=== PATIENT | male | born 1990 | race Caucasian/White ===

== ENCOUNTER 2017-04-11 10:06 | Emergency (ER) | payer BC ==
[2017-04-11] MEDS ORDERED: predniSONE TAB* 20 MG PO ONE (10:40)
[2017-04-11] MEDS ORDERED: Azithromycin TAB* 250 MG PO ONE (10:40)
[2017-04-11] MEDS ORDERED: Albuterol/Ipratropium NEB.SOL* Albuterol 2.5 MG/Ipratropium 0.5 MG 3 ML INH ONE ×2 (10:40→11:35)
--- NOTE | 2017-04-11 11:12 | RAD ---
Indication: Cough and wheezing. 2 views of the chest including dual energy PA views are reviewed and compared to previous exam dated August 03, 2015. No mediastinal shift is noted. Heart is of normal size and configuration. Lung haas are clear. No alveolar consolidation is noted. IMPRESSION: No active cardiopulmonary disease is noted.
--- NOTE | 2017-04-11 11:39 | ED ---
Clari Severino Edward, scribed for Elieser Rocha MD on 04/11/17 at 1041 . Shortness of Breath - HPI Summary HPI Summary: 26 y/o male presents to the ED c/o sudden onset SOB that started while taking an exam earlier today. The pt states he has had mild SOB described as "problems with his asthma" for the past 3 weeks. Associated sx: productive cough with yellow phlegm. Pt has not been on abx. Symptoms were alleviated with prednisone and aggravated with exertion. - History of Current Complaint Chief Complaint: EDAsthma Hx Obtained From: Patient Onset/Duration: Sudden Onset, Lasting Weeks, Worse Since - this morning Current Severity: Moderate Dyspnea At: Exertion Aggrevating Factors: Other - Walking Alleviating Factors: Other - prednisone Associated Signs & Symptoms: Cough (Productive) - Allergy/Home Medications Allergies/Adverse Reactions: Allergies Allergy/AdvReac Type Severity Reaction Status Date / Time Penicillins Allergy Hives Verified 04/11/17 11:08 PMH/Surg Hx/FS Hx/Imm Hx Previously Healthy: No Endocrine/Hematology History: Denies: Hx Diabetes, Hx Thyroid Disease Cardiovascular History: Denies: Hx Hypertension Respiratory History: Reports: Hx Asthma Denies: Hx Chronic Obstructive Pulmonary Disease (COPD) GI History: Denies: Hx Ulcer - Surgical History Surgery Procedure, Year, and Place: ear tubes as a child Infectious Disease History: No Infectious Disease History: Denies: Hx Clostridium Difficile, Hx Hepatitis, Hx Human Immunodeficiency Virus (HIV), Hx of Known/Suspected MRSA, Hx Shingles, Hx Tuberculosis, Traveled Outside the [place] in Last 30 Days - Family History Known Family History: Positive: Other - Depression - brother - Social History Occupation: Student Alcohol Use: None Hx Substance Use: No Substance Use Type: Reports: None Hx Tobacco Use: No Smoking Status (MU): Never Smoked Tobacco Review of Systems Constitutional: Negative Eyes: Negative ENT: Negative Cardiovascular: Negative Positive: Shortness Of Breath, Cough Gastrointestinal: Negative Genitourinary: Negative Musculoskeletal: Negative Skin: Negative Neurological: Negative Psychological: Normal All Other Systems Reviewed And Are Negative: Yes Physical Exam Triage Information Reviewed: Yes Vital Signs On Initial Exam: Initial Vitals Temp Pulse Resp BP Pulse Ox 97.4 F 105 18 117/76 94 04/11/17 10:10 04/11/17 10:10 04/11/17 10:10 04/11/17 10:10 04/11/17 10:10 Vital Signs Reviewed: Yes Appearance: Positive: Well-Appearing, No Pain Distress Skin: Positive: Warm, Skin Color Reflects Adequate Perfusion, Dry Head/Face: Positive: Normal Head/Face Inspection Eyes: Positive: EOMI, JORDAN ENT: Positive: Normal ENT inspection Neck: Positive: Supple, Nontender Respiratory/Lung Sounds: Positive: Breath Sounds Present, Wheezes - bilateral Cardiovascular: Positive: RRR Abdomen Description: Positive: Nontender, Soft Bowel Sounds: Positive: Present Diagnostics - Vital Signs Vital Signs Temp Pulse Resp BP Pulse Ox 04/11/17 10:10 97.4 F 105 18 117/76 94 - Laboratory Lab Statement: Any lab studies that have been ordered have been reviewed, and results considered in the medical decision making process. - Radiology CXR Xray Interpretation: No Acute Changes - No active cardiopulmonary disease Radiology Interpretation Completed By: Radiologist - ED PHYSICIAN REVIEWS AND AGREES Re-Evaluation - Re-Evaluation 1 Re-Evaluation Time: 11:15 Comment: Pt is tachycardic. Breathing is improved, still has wheezes bilaterally. Pt states he feels improved. Course/Dx - Course Course Of Treatment: IMPROVED IN ED AFTER DUONEB X 2. NO INFILTRATE ON CXR. RX ZPAC AND PREDNISONE. F/U PMD; RETURN IF WORSE. - Diagnoses Provider Diagnoses: Asthma exacerbation, Bronchitis Discharge - Discharge Plan Condition: Stable Disposition: HOME Prescriptions: Azithromycin TAB* [Zithromax TAB (Z-SANTA) 250 mg #6 tabs] 250 mg PO DAILY #4 tab predniSONE TAB* [Deltasone TAB*] 40 mg PO DAILY #8 tab Patient Education Materials: Asthma (ED), Acute Bronchitis (ED) Forms: *Work Release Referrals: Frank Forrest MD [Primary Care Provider] - Additional Instructions: FOLLOW UP WITH YOUR DOCTOR. RETURN TO THE EMERGENCY DEPARTMENT FOR ANY WORSENING OF YOUR CONDITION OR QUESTIONS OR CONCERNS. The documentation as recorded by the Clari otto Edward accurately reflects the service I personally performed and the decisions made by me, Elieser Rocha MD.
[2017-04-11 13:09] VITALS: BP 112/68
== END 2017-04-11 13:07 | disposition home or self-care (01) ==
LOC: ED 10:06
DX: J45.901 Unspecified asthma with (acute) exacerbation (principal); R05 Cough; Z88.0 Allergy status to penicillin
CPT/HCPCS: 71020; 94640; 99282; A9270-GY; J7512

== ENCOUNTER 2019-08-28 17:53 | Emergency (ER) | payer BC ==
--- OUTSIDE RECORDS SUMMARY | 2019-08-28 17:58 | XMS REPORT ---
:1990 Author Organization [facility] Care Team Providers Name Role Phone GRACIA OBRIEN Primary Care Physician Unavailable Allergies, Adverse Reactions, Alerts Allergy Code CodeSystem Reaction Severity Criticality Status Start Substance Date Moderate Medications Medication Medication Medication Start Stop Route Dose Status Fill Code CodeSystem Date Date Instructions sertraline 742367 RxNorm 2018-12 oral 50 mg 1 active Take 1 1/2 -12 1/2 tablet every tablet morning for every 30 day(s) morning dextroamphet 493524 RxNorm 2018-12 oral 5 mg 1 active 1 tablet amine-amphet -12 tablet twice a day amine twice a for 30 day(s) day Problems Problem Name Code CodeSystem Alternate Alternate Start End Status Narrative Code CodeSystem Date Date Agoraphobia, 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 3-27 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 3-27 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, 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 Relevant diagnostic tests/laboratory data Narrative No Information Procedures Procedure Code CodeSystem Target Date of Status Service Device Device Device Name Site Procedure Delivery Code Name UID Location Psychotherap 483508 SNOMED-CT () 2019-01-26 complete Mental y, 46 04 d Health- minutes with [address], [id number] Psychotherap [id number] SNOMED-CT () 2018-12-04 complete Mental y, 45 04 d Health- minutes with [address], [id number] Psychotherap [id number] SNOMED-CT () 2019-01-05 complete Mental y, 46 04 d Health- minutes with [address], [id number] Office or [id number] SNOMED-CT () 2019-01-01 complete Mental other 7 d Health- outpatient Radha visit for [address], [facility], [facility], established [id number] patient, [phone] which requires at least 2 of these 3 casarez components: An expanded problem focused history; An expanded problem focused examination; Medical decision making of [facility] Office or [id number] SNOMED-CT () 2019-02-21 complete Mental other 7 d Health- outpatient Radha visit for [address], [facility], established [id number] patient, [phone] which requires at least 2 of these 3 casarez components: An expanded problem focused history; An expanded problem focused examination; Medical decision making of [facility] SNOMED-CT () 2018-09-22 complete Mental d [address], [id number] SNOMED-CT () 2019-06-13 complete Mental d [address], [id number] [phone] Encounters/Encounter Diagnoses Encounter Name Encounter Diagnosis Diagnosis Diagnosis Date of Service Code Code Name CodeSystem Diagnosis Delivery Location Psychotherapy 01035 [id number] Panic SNOMED-CT 2019-06-13 Behavioral Individual 30 disorder [facility] [address] [place] [address], [phone] Vital Signs No Information Social History Element Description Description Start End Code CodeSystem AdditionalInfo Date Date SexAssignedAtBirth Male 1991-0 M AdministrativeGender 2-13 Hospital Discharge Instructions Reason For Referral Medical Equipment FDA Assessments
[2019-08-28 18:27] VITALS: BP 144/65
--- NOTE | 2019-08-28 18:32 | UC ---
Ear Complaint HPI - HPI Summary HPI Summary: 21-year-old male presents with complaints of 2 day history of bilateral ear pain with the left ear being worse than the right. States hearing occasionally feels muffled. Denies fever, chills, ear drainage, tinnitus, vertigo, nasal congestion, sore throat, or cough. - History of Current Complaint Chief Complaint: UCEar Stated Complaint: EAR PAIN Time Seen by Provider: 08/28/19 18:02 Hx Obtained From: Patient Pain Intensity: 3 - Allergies/Home Medications Allergies/Adverse Reactions: Allergies Allergy/AdvReac Type Severity Reaction Status Date / Time Penicillins Allergy Hives Verified 08/28/19 18:27 Home Medications: Home Medications Fluticasone Propionate [Flovent Hfa] 2 puff INH BID 09/05/13 [History Confirmed 08/28/19] Levalbuterol HFA INHALER* [Xopenex Hfa Inhaler*] 2 puff INH DAILY PRN 09/05/13 [ History Confirmed 08/28/19] Cetirizine-Pseudoephedrine [Zyrtec-D Allergy/Congesti 5-120 mg] 1 tab PO BEDTIME 12/03/13 [History Confirmed 08/28/19] Cefdinir [Cefdinir 300 MG CAP] 300 mg PO BID #14 cap 08/28/19 [Rx] PMH/Surg Hx/FS Hx/Imm Hx Respiratory History: Asthma - Surgical History Surgical History: Yes Surgery Procedure, Year, and Place: ear tubes as a child - Family History Known Family History: Positive: Other - Depression - brother - Social History Occupation: Unemployed Lives: With Family Alcohol Use: Rare Substance Use Type: None Smoking Status (MU): Never Smoked Tobacco Review of Systems All Other Systems Reviewed And Are Negative: Yes Constitutional: Negative: Fever, Chills Eyes: Negative: Drainage, Eye Redness ENT: Positive: Ear Ache. Negative: Sore Throat, Nasal Discharge, Sinus Congestion, Sinus Pain/Tenderness Respiratory: Negative: Cough Cardiovascular: Positive: Negative Gastrointestinal: Positive: Negative Genitourinary: Positive: Negative Musculoskeletal: Positive: Negative Neurological/Mental Status: Positive: Negative Is Patient Immunocompromised?: No Physical Exam - Summary Physical Exam Summary: GENERAL APPEARANCE: Alert and cooperative obese adult male who appears to be in no acute distress. EYES: Conjunctiva clear. No drainage. EARS: External auditory canals clear, right TM opaque with good cone of light, left TM erytematous with mild effusion, hearing grossly intact. NOSE: No nasal discharge. THROAT: Pharynx normal. No tonsilar inflammation, swelling, exudate, or lesions. Uvula midline. NECK: Neck supple, non-tender without lymphadenopathy. CARDIAC: Normal S1 and S2. No S3, S4 or murmurs. Rhythm is regular. There is no peripheral edema, cyanosis or pallor. Extremities are warm and well perfused. Capillary refill is less than 2 seconds. Peripheral pulses intact. LUNGS: Clear to auscultation without rales, rhonchi, wheezing or diminished breath sounds. ABDOMEN: Positive bowel sounds. Soft, nondistended, nontender. No guarding or rebound. No masses or hepatosplenomegally. MUSKULOSKELETAL: ROM intact to all extremities. No joint erythema or tenderness. Normal muscular development. Normal gait. SKIN: Skin normal color, texture and turgor with no lesions or eruptions. Triage Information Reviewed: Yes Vital Signs: Initial Vital Signs Temp 98.8 F 08/28/19 18:15 Pulse 86 08/28/19 18:15 Resp 29 08/28/19 18:15 BP 144/65 08/28/19 18:15 Pulse Ox 98 08/28/19 18:15 Vital Signs Reviewed: Yes Ear Complaint Course/Dx - Course Course Of Treatment: 21-year-old male presents with complaints of 2 day history of bilateral ear pain with the left ear being worse than the right. States hearing occasionally feels muffled. Denies fever, chills, ear drainage, tinnitus, vertigo, nasal congestion, sore throat, or cough. Afebrile. Hypertensive response stable. On exam patient was noted to have an erytematous left TM with mild effusion otherwise exam was unremarkable. Will treat him with a 7 day course of cefdinir 300 mg twice a day for a left otitis media. I did peer counselor the patient that there was a small risk of a reaction since he does list penicillin as an allergy however he reports only a rash with taking penicillin. He is to follow up with his primary care provider in 5-7 days if symptoms are not improving. Anticipatory guidance and warning symptoms are reviewed with the patient. Verbalizes understanding and agrees with plan of care. - Differential Dx/Diagnosis Differential Diagnosis/HQI/PQRI: Otitis Externa, Otitis Media, Perforated TM, URI Provider Diagnosis: Left otitis media Discharge ED - Sign-Out/Discharge Documenting (check all that apply): Patient Departure All imaging exams completed and their final reports reviewed: No Studies - Discharge Plan Condition: Stable Disposition: HOME Prescriptions: Cefdinir [Cefdinir 300 MG CAP] 300 mg PO BID #14 cap Patient Education Materials: Ear Infection (ED) Referrals: Frank Forrest MD [Primary Care Provider] - 5 Days Additional Instructions: Your exam is consistent with a left ear infection. We will start to on an antibiotic to treat for the infection. Start Cefdinir 300 mg 1 capsule twice daily for 7 days. Take acetaminophen (Tylenol) or ibuprofen (Advil, Motrin) according directions as needed for pain. Follow-up with your primary care provider in 5-7 days if symptoms are not improving. Seek immediate medical attention if you develop fever greater than 100.5 F, have severe pain that is not managed with pain medications, drainage or blood coming from the ear, loss of hearing, or any worsening of symptoms. - Billing Disposition and Condition Condition: STABLE Disposition: Home - Attestation Statements Provider Attestation: This patient was not seen by me. I was available for consult. Chart reviewed. KRISHNA
== END 2019-08-28 18:48 | disposition home or self-care (01) ==
LOC: UCEAST 17:53
DX: H66.92 Otitis media, unspecified, left ear (principal); J45.909 Unspecified asthma, uncomplicated; Z88.0 Allergy status to penicillin
CPT/HCPCS: 99212; G0463